=== PATIENT | male | born 1990 | race Two or more races ===

== ENCOUNTER 2016-08-25 13:58 | Emergency (ER) | payer SELFPAY ==
[2016-08-25 14:02] VITALS: BP 129/70; BMI 31.8
--- NOTE | 2016-08-25 14:14 | DR.GENAD ---
HPI - PCP Primary Care Physician: NFD - Complaint/Symptoms Chief Complaint Doctors Comments: He denies penile discharge or fever. Chief Complaint:: PT. C/O LEFT GROIN PAIN THAT BEGAN ON SUNDAY. 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 - Source History Provided: Patient - Mode of Arrival Mode of Arrival: Ambulatory - Timing Onset of Chief Complaint: 08/22/16 PMH - PMH Past Medical History: No Past Surgical History: No Surgical History: No History - Family History History of Family Medical Conditions: No - Social History Does patient currently use any type of tobacco product: No Have you used tobacco products in the last 12 months: No Type of Tobacco Use: None Does any household member use tobacco: No Alcohol Use: Occasionally Do you use any recreational Drugs:: No Lives With: Friend Lives Where: Home - infectious screening In the last 2 months have you had wt loss of >10#?: NO Have you had fever, night sweats or hemotysis?: No Have you traveled outside the country in the last 6 months?: No Isolation: Standard ROS - Review of Systems Eyes: No Symptoms Reported ENTM: No Symptoms Reported Respiratoy: No Symptoms Reported Cardiovascular: No Symptoms Reported Gastrointestinal/Abdominal: No Symptoms Reported Genitourinary: No Symptoms Reported Neurological: No Symptoms Reported Musculoskeletal: No Symptoms Reported Integumentary: No Symptoms Reported Hematologic/Lymphatic: Lymphadenopathy (left inguinal adenopathy w/o erythema) Endocrine: No Symptoms Reported Psychiatric: No Symptoms Reported All Other Systems: Reviewed and Negative PE - Vital Signs Vitals: Temperature 98.2 F Pulse Rate 85 Respiratory Rate 17 Blood Pressure 129/70 O2 Sat by Pulse Oximetry 96 - General Limitations: No Limitations General Appearance: Alert, In No Apparent Distress - Head Head Exam: Normal Inspection, Atraumatic - Eyes Eye exam: Normal Appearance, PERRL, EOMI - ENT ENT Exam: Normal Exam External Ear Exam: Normal External Inspection TM/Canal Exam: Bilateral Normal Nose Exam: Normal Nose Exam Mouth Exam: Normal Inspection Throat Exam: Normal Inspection - Neck Neck Exam: Normal Inspection - Chest Chest Inspection: Normal Inspection - Respiratory Respiratory Exam: Normal Lung Sounds Bilat Respiratory Exam: Bilateral Clear to Auscultation - Cardiovascular Cardiovascular Exam: Regular Rate, Normal Rhythm - Abdominal Exam Abdominal Exam: Normal Inspection, Normal Bowel Sounds Abdominal Tenderness: negative: RUQ, RLQ, LUQ, LLQ, Epigastrium, Suprapubic, Diffuse, Mild, Moderate, Severe, Other - Extremities Extremities Exam: Normal Inspection, Full ROM - Back Back Exam: Normal Inspection, Full ROM - Neurologic Neurological Exam: Alert, Oriented X3, CN II-XII Intact - Psychiatric Psychiatric Exam: Normal Affect, Normal Mood - Skin Skin Exam: Warm, Dry, Intact ROR - Labs Reviewed Result Diagrams: 08/25/16 14:35 08/25/16 14:35 Laboratory: WBC 9.1 X10^3/uL (3.6-10.0) 08/25/16 14:35 RBC 5.46 X10^6/uL (4.7-6.0) 08/25/16 14:35 Hgb 16.2 g/dL (13.5-18.0) 08/25/16 14:35 Hct 46.5 % (42.0-54.0) 08/25/16 14:35 MCV 85.1 fL (80.0-100.0) 08/25/16 14:35 MCH 29.6 pg (27.0-34.0) 08/25/16 14:35 MCHC 34.8 g/dL (33.0-35.0) 08/25/16 14:35 RDW 12.7 % (11.6-16.5) 08/25/16 14:35 Plt Count 211 X10^3/uL (150.0-450.0) 08/25/16 14:35 MPV 7.7 fL (7.4-11.0) 08/25/16 14:35 Neut % 65.4 % (42.0-75.0) 08/25/16 14:35 Lymph % 19.2 % (21.0-51.0) L 08/25/16 14:35 [place] % 13.3 % (0.0-13.0) H 08/25/16 14:35 Eos % 1.5 % (0.9-2.9) 08/25/16 14:35 Baso % 0.6 % (0.2-1.0) 08/25/16 14:35 Neut # 5.9 x10^3/uL (2.2-4.8) H 08/25/16 14:35 Lymph # 1.7 X10^3/uL (1.3-2.9) 08/25/16 14:35 [place] # 1.2 x10^3/uL (0.3-0.8) H 08/25/16 14:35 Eos # 0.1 x10^3/uL (0.0-0.2) 08/25/16 14:35 Baso # 0.1 X10^3/uL (0.0-0.1) 08/25/16 14:35 Absolute Nucleated RBC 0.1 /100WBC 08/25/16 14:35 Sodium 137 mmol/L (136-145) 08/25/16 14:35 Corrected Sodium TNP 08/25/16 14:35 Potassium 3.7 mmol/L (3.5-5.1) 08/25/16 14:35 Chloride 101 mmol/L (98-107) 08/25/16 14:35 Carbon Dioxide 31.0 mmol/L (21-32) 08/25/16 14:35 BUN 16 mg/dL (7-18) 08/25/16 14:35 Creatinine 1.03 mg/dL (0.70-1.30) 08/25/16 14:35 Est GFR (MDRD) Af Amer > 60 (>60) 08/25/16 14:35 Est GFR (MDRD) Non-Af > 60 (>60) 08/25/16 14:35 Glucose 75 mg/dL (65-99) 08/25/16 14:35 Calcium 8.6 mg/dL (8.5-10.1) 08/25/16 14:35 C-Reactive Protein 8.70 mg/L (0-3.0) H 08/25/16 14:35 - Diagnosis Discharge Problem: Inguinal adenopathy - Discharge Plan Condition: Stable - Follow ups/Referrals Follow ups/Referrals: NFD,None [Primary Care Provider] - 3 days - Instructions
[2016-08-25 14:52] LABS: BASOPHILS # (AUTO) 0.1 X10^3/uL (0.0-0.1); BASOPHILS % (AUTO) 0.6 % (0.2-1.0); EOSINOPHILS # (AUTO) 0.1 x10^3/uL (0.0-0.2); EOSINOPHILS % (AUTO) 1.5 % (0.9-2.9); HEMATOCRIT 46.5 % (42.0-54.0); HEMOGLOBIN 16.2 g/dL (13.5-18.0); LYMPHOCYTES # (AUTO) 1.7 X10^3/uL (1.3-2.9); LYMPHOCYTES % (AUTO) 19.2 % (21.0-51.0); MEAN CORPUSCULAR HEMOGLOBIN 29.6 pg (27.0-34.0); MEAN CORPUSCULAR HGB CONC 34.8 g/dL (33.0-35.0); MEAN CORPUSCULAR VOLUME 85.1 fL (80.0-100.0); MEAN PLATELET VOLUME 7.7 fL (7.4-11.0); MONOCYTES # (AUTO) 1.2 x10^3/uL (0.3-0.8); MONOCYTES % (AUTO) 13.3 % (0.0-13.0); NEUTROPHILS # (AUTO) 5.9 x10^3/uL (2.2-4.8); NEUTROPHILS % (AUTO) 65.4 % (42.0-75.0); PLATELET COUNT 211 X10^3/uL (150.0-450.0); RED BLOOD COUNT 5.46 X10^6/uL (4.7-6.0); RED CELL DISTRIBUTION WIDTH 12.7 % (11.6-16.5); WHITE BLOOD COUNT 9.1 X10^3/uL (3.6-10.0)
[2016-08-25 14:56] LABS: BLOOD UREA NITROGEN 16 mg/dL (7-18); CALCIUM 8.6 mg/dL (8.5-10.1); CHLORIDE 101 mmol/L (98-107); CREATININE 1.03 mg/dL (0.70-1.30); GLUCOSE 75 mg/dL (65-99); SODIUM 137 mmol/L (136-145); eGFR BLACK RACES > 60 (>60); eGFR NON BLACK RACES > 60 (>60)
== END 2016-08-25 15:41 | disposition home or self-care (01) ==
LOC: ER 14:05
DX: R59.0 Localized enlarged lymph nodes (principal)
CPT/HCPCS: 36415; 80048; 85025; 86140; 99282